=== PATIENT | male | born 1940 | race Caucasian/White ===

== ENCOUNTER 2024-02-20 11:39 | Outpatient (CLI) | payer MEDICARE, OTHER | END 2024-02-20 11:40 | disposition home or self-care (01) | LOC: CSHRAD 11:39 | PROVIDERS: ATTEND Internal Medicine Cardiovascular Disease | DX: R06.02 Shortness of breath (principal); R06.00 Dyspnea, unspecified; J98.6 Disorders of diaphragm; J98.11 Atelectasis | CPT/HCPCS: 71046 ==